=== PATIENT | male | born 1965 | race Caucasian/White ===

== ENCOUNTER 2020-07-19 12:02 | Outpatient (CLI) | payer MEDICARE, SELFPAY ==
[2020-07-19 12:12] LABS: Basophils Absolute Auto 0.07 K/mm3 (0.00-0.10); Basophils Percent Auto 0.8 % (0.0-1.0); Eosinophils Absolute Auto 0.31 K/mm3 (0.02-0.50); Eosinophils Percent Auto 3.4 % (1.0-6.0); Hematocrit 39.4 % (40.0-54.0); Hemoglobin 12.3 g/dL (14.0-18.0); Immature Granulocyte Absolute 0.03 K/mm3 (0.00-0.00); Immature Granulocyte Percent A 0.3 % (0.0-0.0); Lymphocytes Percent Auto 35.2 % (18.0-42.0); Mean Corpuscular HGB Conc 31.2 g/dL (32.0-36.0); Mean Corpuscular Hemoglobin 24.9 pg (27.0-31.0); Mean Corpuscular Volume 79.8 fL (78.0-102.0); Mean Platelet Volume 8.9 fl (8.7-11.0); Monocytes Absolute Auto 0.64 K/mm3 (0.10-0.90); Neutrophils Absolute Auto 4.9 K/mm3 (1.7-7.2); Neutrophils Percent Auto 53.3 % (50.0-70.0); Platelet Count Result 317 K/mm3 (150-420); Red Blood Count 4.94 M/mm3 (4.70-6.10); Red Cell Distribution Width 13.7 % (11.6-14.4); White Blood Count 9.1 K/mm3 (4.8-10.8)
[2020-07-19 12:47] LABS: Alanine Aminotransferase 19 U/L (16-63); Albumin Level 3.6 g/dL (3.4-5.0); Alkaline Phosphatase 104 U/L (46-116); Anion Gap 4 mmol/L (8-16); Aspartate Amino Transferase 14 U/L (15-37); Bilirubin,Total 0.3 mg/dL (0.00-1.00); Blood Urea Nitrogen 17 mg/dL (7-18); Carbon Dioxide 31 mmol/L (21-32); Chloride 105 mmol/L (98-108); Estimated Glomerular Filt Rate > 60; Glucose 93 mg/dL (70-99); Osmolality Calculated 291 mOsm/kg (285-295); Potassium 3.9 mmol/L (3.5-5.1); Sodium 140 mmol/L (136-145)
[2020-07-19 19:29] LABS: Ferritin 13 ng/mL (26-388); Iron 35 ug/dL (65-175); Percent Iron Saturation 10 % (12-57)
[2020-07-20 16:59] LABS: CRP < 0.5 mg/dL (0.0-0.9)
== END 2020-07-19 12:03 | disposition home or self-care (01) ==
LOC: CHSLAB 12:03
PROVIDERS: PCP Family Medicine; Visit Provider Family Medicine
DX: I10 Essential (primary) hypertension (principal); D64.9 Anemia, unspecified
CPT/HCPCS: 36415; 80053; 82728; 83540; 83550; 85025; 86140

== ENCOUNTER 2020-07-21 09:41 | Outpatient (CLI) | payer MEDICARE, SELFPAY ==
[2020-07-24 09:19] LABS: SARS-CoV-2 RNA PCR Negative
== END 2020-07-21 09:42 | disposition home or self-care (01) ==
LOC: CHSLAB 09:43
PROVIDERS: PCP Family Medicine; Visit Provider Family Medicine
DX: R53.83 Other fatigue (principal); Z20.828 Contact with and (suspected) exposure to other viral communicable diseases
CPT/HCPCS: 87635; C9803; U0003

== ENCOUNTER 2020-10-18 11:28 | Outpatient (CLI) | payer MEDICARE, SELFPAY ==
[2020-10-18 11:58] LABS: Influenza Control Valid (Valid); SARS-CoV-2 Ag Positive (Negative)
== END 2020-10-18 11:29 | disposition home or self-care (01) ==
LOC: CHSLAB 11:30
PROVIDERS: PCP Family Medicine; Visit Provider Family Medicine
DX: U07.1 COVID-19 (principal); J00 Acute nasopharyngitis [common cold]
CPT/HCPCS: 87426; 87804

== ENCOUNTER 2020-12-02 14:42 | Outpatient (CLI) | payer MEDICARE, SELFPAY ==
[2020-12-02 14:56] LABS: Basophils Absolute Auto 0.06 K/mm3 (0.00-0.10); Basophils Percent Auto 0.7 % (0.0-1.0); Eosinophils Percent Auto 3.3 % (1.0-6.0); Hematocrit 40.9 % (40.0-54.0); Hemoglobin 13.6 g/dL (14.0-18.0); Immature Granulocyte Absolute 0.03 K/mm3 (0.00-0.00); Immature Granulocyte Percent A 0.3 % (0.0-0.0); Lymphocytes Absolute Auto 3.25 K/mm3 (1.10-4.50); Mean Corpuscular HGB Conc 33.3 g/dL (32.0-36.0); Mean Corpuscular Hemoglobin 28.8 pg (27.0-31.0); Mean Corpuscular Volume 86.7 fL (78.0-102.0); Mean Platelet Volume 8.8 fl (8.7-11.0); Monocytes Absolute Auto 0.55 K/mm3 (0.10-0.90); Monocytes Percent Auto 6.1 % (2.0-11.0); Neutrophils Absolute Auto 4.8 K/mm3 (1.7-7.2); Neutrophils Percent Auto 53.6 % (50.0-70.0); Platelet Count Result 309 K/mm3 (150-420); Red Blood Count 4.72 M/mm3 (4.70-6.10); Red Cell Distribution Width 13.6 % (11.6-14.4); Reticulocyte Hemoglobin Conten 35.2 pg (28.0-35.0); Reticulocyte Percent 2.31 % (0.50-1.50); Reticulocytes Absolute 0.11 M/mm3 (0.02-0.1)
[2020-12-02 15:59] LABS: Ferritin 34 ng/mL (26-388); Iron 83 ug/dL (65-175); Percent Iron Saturation 25 % (12-57)
== END 2020-12-02 14:43 | disposition home or self-care (01) ==
LOC: CHSLAB 14:44
PROVIDERS: PCP Family Medicine; Visit Provider Family Medicine
DX: D50.9 Iron deficiency anemia, unspecified (principal)
CPT/HCPCS: 36415; 82728; 83540; 83550; 85025; 85046

== ENCOUNTER 2021-10-02 08:40 | Outpatient (CLI) | payer MEDICARE, OTHER, SELFPAY ==
--- NOTE | 2021-10-02 11:00 | NEURO_ITS ---
Impression: # Complains of numbness of right hand. # Right ulnar neuropathy across the elbow. # No Carpal Tunnel Syndrome. # Needle/EMG exam not requested. Nerve Conduction Studies Anti Sensory Summary Table Stim Site NR Peak (ms) P-T Amp (?V) Site1 Site2 Delta-P (ms) Dist (cm) Jey (m/s) Right Median Anti Sensory (2-3nd Digit) Wrist 3.3 37.5 Wrist 2-3nd Digit 3.3 14.0 42 Wrist 3.3 23.9 Wrist 2-3nd Digit 3.3 14.0 42 Right Radial Anti Sensory (Base 1st Digit) Wrist 2.5 10.8 Wrist Base 1st Digit 2.5 0.0 Right Ulnar Anti Sensory (5th Digit) Wrist 2.8 41.5 Wrist 5th Digit 2.8 14.0 50 Motor Summary Table Stim Site NR Onset (ms) O-P Amp (mV) Site1 Site2 Delta-0 (ms) Dist (cm) Jey (m/s) Right Median Motor (Abd Poll Brev) Wrist 3.4 1.6 Elbow Wrist 4.8 26.0 54 Elbow 8.2 2.2 Right Ulnar Motor (Abd Dig Minimi) Wrist 2.5 8.4 A Elbow Wrist 5.7 27.0 47 A Elbow 8.2 7.4 B Elbow Wrist 3.6 20.0 56 B Elbow 6.1 7.3 F Wave Studies NR F-Lat (ms) L-R F-Lat (ms) Right Median (Mrkrs) (Abd Poll Brev) 30.63 Right Ulnar (Mrkrs) (Abd Dig Min) 29.69 MTDD
== END 2021-10-02 08:41 | disposition home or self-care (01) ==
PROVIDERS: PCP Family Medicine; Visit Provider Family Medicine
DX: G56.21 Lesion of ulnar nerve, right upper limb (principal); R20.2 Paresthesia of skin
CPT/HCPCS: 95909

== ENCOUNTER 2023-05-12 10:04 | Outpatient (CLI) | payer MEDICARE, OTHER, SELFPAY ==
--- NOTE | ~2023-05-12 | XR_ITS ---
Right Shoulder Technique: AP and scapular Y views were obtained. Clinical History: Pain Findings: No fracture or dislocation is seen. Osseous alignment is anatomic. There is moderate to adv anced AC joint degenerative change. No degenerative change of the glenohumeral joint. Soft tissues ar e unremarkable. Impression: Moderate to advanced AC joint degenerative change. Reviewed, dictated and finalized at location . Impression: Moderate to advanced AC joint degenerative change.
== END 2023-05-12 10:05 | disposition home or self-care (01) ==
LOC: CHSIMG 10:07
PROVIDERS: PCP Family Medicine; Visit Provider Family Medicine
DX: M25.511 Pain in right shoulder (principal); M19.011 Primary osteoarthritis, right shoulder
CPT/HCPCS: 73030

== ENCOUNTER 2024-09-03 13:26 | Outpatient (CLI) | payer MEDICARE, OTHER, SELFPAY ==
--- NOTE | ~2024-09-03 | XR_ITS ---
3 VIEWS LUMBAR SPINE Ordering provider: Jalen Aguirre MD History: . Low back pain, radiates down Lt. leg . Comparison: None. FINDINGS: VERTEBRAL BODIES: No visible fracture or subluxation. Degenerative changes of the spine. Severe bending of the coccyx. DISK SPACES: Normal. Multilevel facet joint disease. SOFT TISSUES: Aortic calcifications. IMPRESSION: No acute osseous abnormality lumbar spine. Reviewed, dictated and finalized at location A.
== END 2024-09-03 13:27 | disposition home or self-care (01) ==
PROVIDERS: PCP Family Medicine; Visit Provider Family Medicine
DX: M54.17 Radiculopathy, lumbosacral region (principal)
CPT/HCPCS: 72100

== ENCOUNTER 2025-03-17 11:47 | Outpatient (CLI) | payer MEDICARE, OTHER, SELFPAY ==
--- NOTE | ~2025-03-17 | XR_ITS ---
Right wrist Technique: PA, oblique, lateral, and ulnar deviation views were obtained. Clinical History: Pain Findings: No acute fracture or dislocation is seen. Osseous alignment is anatomic. Joint spaces are p reserved. Soft tissues are unremarkable. Impression: Unremarkable right wrist radiographs. Reviewed, dictated and finalized at location . Impression: Unremarkable right wrist radiographs.
--- OUTSIDE RECORDS SUMMARY | 2025-03-17 11:54 | XMS_ITS | Clinical Summary ---
Author Organization [facility] Address [facility] [place] [address] Care Team Providers Care Shiftman Name Role Phone Jalen Aguirre MD Primary Care Provider [phone] Allergies No known active allergies Medications citalopram (CELEXA) 20 MG tablet 08/15/2022 Active cyanocobalamin (B-12) 1000 MCG/ML injection 08/15/2022 Ac tive lisinopril (PRINIVIL) 10 MG tablet Take 10 mg by mouth daily. Active Active Problems No known active problems Social History Tobacco Use Types Packs/Day Years Used Date Smoking Tobacco: Never Smokeless Tobacco: Never Tobacco Cessation:Counseling Given: No Sex and Gender Information Value Date Recorded Sex Assigned at Not on file Legal Sex Male 10:01 PM CDT Gender Identity Not on file Sexual Orientation Not on file Last Filed Vital Signs Vital Sign Reading Time Taken Comments Blood Pressure 132/88 09/07/2022 11:40 AM CDT Pulse 70 09/07/2022 11:40 AM CDT Temperature 36.9 C (98.5 F) 09/07/2022 11:40 AM CDT Respiratory Rate 18 09/07/2022 11:40 AM CDT Oxygen Saturation 98% 09/07/2022 11:40 AM CDT Inhaled Oxygen Concentration - - Weight 103 kg (227 lb) 09/07/2022 11:40 AM CDT Height 172.7 cm (5' 8 ) 09/07/2022 11:40 AM CDT Body Mass Index 34.52 09/07/2022 11:40 AM CDT Plan of Treatment Health Maintenance Due Date Last Done Comments Colorectal Cancer Screening Colonoscopy (10 Years) 1963 Annual Physical 1966 Hepatitis C 1981 Pneumococcal Vaccine: 50+ Years (1 of 1 - PCV) 2013 Zoster Vaccines (1 of 2) 2013 DTaP, Tdap and Td Vaccines (2 - Td or Tdap) 04/23/2021 04/23/2011 COVID-19 Vaccine ( season) 2024 08/06/2022, 08/14/2021, 01/03/2021, Additional history exists RSV Immunization or 60+ Years (1 - 1-dose 75+ series) 2038 Meningococcal B Vaccine Aged Out No l onger eligible based on patient's age to complete this topic Meningococcal Vaccine Aged Out No radha marjorie eligible based on patient's age to complete this topic RSV Immunizations Under 20 Months Aged Out No longer eligible based on patient's age to complete this topic Insurance MEDICARE [facility] Care Teams Shiftman Relationship Specialty Start Date End Date Jalen Aguirre MD [address] [place] [address] PCP - General FAMILY PRACTICE 09/07/22
--- OUTSIDE RECORDS SUMMARY | 2025-03-17 11:54 | XMS_ITS | Continuity of Care Document ---
Author Name [facility] Organization [facility] Care Team Providers Care Marine Fuel Dock Attendant Name Role Phone [facility] Unavailable Unavailable Encounters Combined list of: 1) Encounters from Department of Veterans Affairs facilities going backup to the last 18 months, not all VA inpatient encounters are included; 2) Encounters from the Department of Defense facilities going backup to 280 months. Location Location Details Encounter Type Encounter Number Reason For Visit Attending Provider ADM Date DC Date Status Disposition Source [facility] Outpatient Encounter [id number] [facility]
--- OUTSIDE RECORDS SUMMARY | 2025-03-17 11:54 | XMS_ITS | Data Portability ---
Author Organization [facility] [employer] [facility] Address [address] [facility] [place] [address] Assessment No assessment recorded. Plan of Treatment Reminders Order Date Submit Date Provider Last Modified By Organization Details Last Modified Time Details Appointments None recorded. Lab rapid flu (A+B) 2023 jose [facility], [facility] [place], [address], 10:42:57 Referral None recorded. Procedures None recorded. Surgeries None recorded. Imaging None recorded. Medication Orders benzonatate 200 mg capsule 2023 [id number] Mya [place], [facility] [place], [address], 4 10:42:57 Medrol (Jorge) 4 mg tablets in a dose pack 2023 [id number] Mya Diane, [facility] [place], [address], 4 10:42:57 Tamiflu 75 mg capsule 2023 [id number] Mya [place], [facility] [place], [address], 4 10:42:57 Patient TargetsNo targets recorded. Patient Instructions Encounter Date Encounter Id Patient Instructions Last Modified By Organization Details Last Modified Time 11/17/2023 [id number] cough: care instructions jose Not available 11/17/2023 10:42:54 Discharge Instructions jose Not available 11/17/2023 10:42:54 influenza (flu): care instructions jose Not available 11/17/2023 10:42:54 Reason for Referral None Reported. Results Created Date Observation Date Name Description Value Unit Range Abnormal Flag Note LastModifiedBy Organization Detail LastModifiedTime 11/17/19 24 11/17/2023 rapid flu (A+B) Flu A positi ve Not Available [address], [address], 11/17/2023 10:42:03 11/17/19 24 11/17/2023 rapid flu (A+B) Flu B negati ve Not Available [address], [address], 11/17/2023 10:42:03 Result Notes None recorded. Problems Name Problem SNOMED Code Status Onset Date Resolution Date Notes Provider Name and Address Organization Details Recorded Time Cough 90615545 Active 024 [place] [address], [place], [address], [facility], [facility] 10:31:07 Generalized aches and pains 99414908 Active 024 [place] [address], [place], [address], [facility], [facility] 10:31:15 Problem Notes None recorded. Procedures Surgical History Date Name Laterality Status Provider Name and Address Organization Details Recorded Time Appendectomy completed CRUZITO Hung, SARAH [address], [place], [address], [facility], [facility] 11/17/2023 10:31:32 Knee Surgery completed CRUZITO Hung, STEAM BOX OPERATOR [address], [place], [address], [facility], [facility] 11/17/2023 10:31:38 Imaging Results None recorded. Procedure Notes None recorded. Medical Equipment None Reported. Allergies No known drug allergies Medications Name Sig Start Date Stop Date Status Note LastModified by Organization Details LastModified Time azithromycin 250 mg tablet 11/17 completed Not Available Not Available Not Available benzonatate 200 mg capsule Take 1 capsule 3 times a day by oral route for 10 days. active Not Available Not Available No t Available hydrocodone 5 mg-acetamino phen 325 mg tablet active Not Available Not Available Not Available citalopram 20 mg tablet active Not Available Not Available Not Available cephalexin 500 mg capsule 11/17 completed Not Available Not Available Not Available cyanocobalam in (vit B-12) 1,000 mcg/mL injection solution active Not Available Not Available Not Available oseltamivir 75 mg capsule Take 1 capsule twice a day by oral route for 5 days. active Not Available Not Available No t Available methylpredni solone 4 mg tablets in a dose pack Take 1 dose pk by oral route. active Not Available Not Available No t Available losartan 100 mg-hydrochlo rothiazide 12.5 mg tablet active Not Available Not Available Not Available Vitals Date Recorded Heart rate Respiratory rate Oxygen saturation Oxygen saturation in Arterial blood by Pulse oximetry Body temperature Body height Body weight Systolic blood pressure Diastolic blood pressure Provider Name and Address Organization Details Last Updated DateTime 4 82 /min 18 /min 96 % 96 % 100 [degF] 172.72 cm 24888.3 2 g 147 mm[Hg] 96 mm[Hg] RCUZITO BACA, SARAH [address], [place], [address], [facility] 4 10:30:33 Social History Question Answer Notes LastModified by Organizat ion Details LastModified Time Tobacco Smoking Status Never Smoker CRUZITO BACA, SARAH [address], [place], [address], [facility], [facility] 11/17/2023 10:31:23 In The 14 Days Before Symptom Onset, Have You Had Close Contact With A Laboratory-confirm ed COVID-19 While That Case Was Ill? No [email or web address] Information n ot available 11/17/2023 In The 14 Days Before Symptom Onset, Have You Had Close Contact With A Person Who Is Under Investigation For COVID-19 While That Person Was Ill? No Information not available 11/17/2023 Have You Been To An Area Known To Be High Risk For COVID-19? No [email or web address] Information not available 11/17/2023 Alcohol Use Occasional [email or web address] Information n ot available 11/17/2023 What Was The Date Of Your Most Recent Tobacco Screening? 11/17/2023 [email or web address] Information not available 11/17/2023 Are You Passively Exposed To Smoke? No Information no t available 11/17/2023 Do You Or Have You Ever Used Any Other Forms Of Tobacco Or Nicotine? No Information not available 11/17/2023 Sex: Unknown Functional Status None recorded. Mental Status None recorded. Family History Nothing Reported. Medical History Condition Response Anxiety/Depression Y Hypertension Y Past Encounters Encounter ID Performer Location Encounter Start Date Encounter Closed Date Diagnosis/Indication Diagnosis SNOMED-CT Code Diagnosis ICD10 Code Diagnosis Note [id number] Katie Prieto NP [address] [address] 11/17/2023 10:02:32 11/17/2023 11:06:38 Influenza 1055861 J11.1 Cough 13469438 R05.9 Health Concerns Section Related Observation LastModified by Organization Detai ls LastModified Time None Recorded Concern Status LastModified by Organization Details LastModified Time None Recorded Advance Directives Directive None Recorded Payers Insurance Date Sequence Insurance Name Policy Number Policy Ribera Covered Member ID Ribera Member ID Guarantor Name 01/21/2024 1 [place] Henrique Lipscomb [id number] Henrique Lipscomb 01/21/2024 2 [employer] (O) [id number] Henrique Lipscomb [id number] Henrique Lipscomb Notes Date Note Type Note Provider Name and Address Organization Details Recorded Time 11/17/2023 text/html InfluenzaReporte d bypatient.Location:hea d; chest; throat Quality:hacking cough;productive cough;congested Severity:moderate Onset/Duration:3 day(s) ago Timing:episodic; constant Context:no foreign travel;sick contact Associated Symptoms:fatigue;sweat [place] [address], [place], [address], [facility], [facility] 11/17/2023 10:43:33
--- OUTSIDE RECORDS SUMMARY | 2025-03-17 11:54 | XMS_ITS | Encounter Summary ---
Author Organization [facility] Address [address] [place] [address] Care Team Providers Care Event Marketing Specialist Name Role Phone Jalen Aguirre MD Primary Care Provider [phone] Encounter Details Date Type Department Care Team (Late st Contact Info) Description 04/17/2019 Abstract [facility] CONVERSION [address] [place] [address] , Generic Conversion, Social History Tobacco Use Types Packs/Day Years Used Date Smoking Tobacco: Never Assessed Sex and Gender Information Value Date Recorded Sex Assigned at Not on file Legal Sex Male 10:01 PM CDT Gender Identity Not on file Sexual Orientation Not on file documented as of this encounter Plan of Treatment Not on file documented as of this encounter Visit Diagnoses Not on filedocumented in this encounter Care Teams Event Marketing Specialist Relationship Specialty Start Date End Date Jalen Aguirre MD [address] [place] [address] PCP - General FAMILY PRACTICE 09/07/22 documented as of this encounter
== END 2025-03-17 11:48 | disposition home or self-care (01) ==
LOC: CHSIMG 11:50
PROVIDERS: PCP Family Medicine; Visit Provider Family Medicine
DX: M25.531 Pain in right wrist (principal)
CPT/HCPCS: 73110

== ENCOUNTER 2025-10-12 10:15 | Outpatient (CLI) | payer MEDICARE, OTHER, SELFPAY ==
--- NOTE | ~2025-10-12 | XR_ITS ---
EXAMINATION: XR humerus LT, 10/12/2025 10:20 MANAGER ESTATE HISTORY: LEFT SHOULDER PAIN, PAIN IN LEFT ARM / MIN OF TWO VIEWS COMPARISON: No comparisons available. Findings: No acute fracture or malalignment. No significant degenerative changes. There is metallic radiopaque foreign body within the soft tissues adjacent to the distal humerus along the medial aspect. Impression: No acute fracture or malalignment. Reviewed, dictated and finalized at location P. GER ESTATE Impression: No acute fracture or malalignment.
--- NOTE | ~2025-10-12 | XR_ITS ---
EXAMINATION: XR shoulder LT min 2V, 10/12/2025 10:20 AMERICAN HISTORY TEACHER HISTORY: LEFT SHOULDER PAIN COMPARISON: No comparisons available. Findings: No acute fracture or malalignment. Moderate to severe degenerative changes Soft tissues unremarkable. Impression: No acute fracture or malalignment. Reviewed, dictated and finalized at location P. ERICAN HISTORY TEACHER Impression: No acute fracture or malalignment.
--- OUTSIDE RECORDS SUMMARY | 2025-10-12 11:34 | XMS_ITS | Encounter Summary ---
Author Organization [facility] Address [address] [place] [address] Care Team Providers Care Show Host Or Hostess Name Role Phone Jalen Aguirre MD Primary Care Provider [phone] Encounter Details Date Type Department Care Team (Late st Contact Info) Description 04/17/2019 Abstract [facility] CONVERSION [address] [place] [address] , Generic Conversion, Social History Tobacco Use [...] on filedocumented in this encounter Care Teams Show Host Or Hostess Relationship Specialty Start Date End Date Jalen Aguirre MD [address] [place] [address] PCP - General FAMILY PRACTICE 09/07/22 documented as of this encounter
--- OUTSIDE RECORDS SUMMARY | 2025-10-12 11:34 | XMS_ITS | Data Portability ---
[facility] Organization [facility] Address [address] [facility] [address] [place] [address] Assessment No assessment recorded. Plan of Treatment Reminders Order Date Submit Date Provider Last Modified By Organization Details Last Modified Time Details Appointments None recorded. Lab rapid flu (A+B) 2023 jose [facility], [address] [place], [address], 10:42:57 Referral None recorded. Procedures None recorded. Surgeries None recorded. Imaging None recorded. Medication Orders benzonatate 200 mg capsule [facility]23 [id number] Mya [place], [address] [place] [address], [address], 4 10:42:57 Medrol (Jorge) 4 mg tablets in a dose pack 2023 024 [id number] Mya Diane, [address] [place] [address], [address], 4 10:42:57 Tamiflu 75 mg capsule 2023 [place] [id number] Mya [place], [address] [place] [address], [address], 4 10:42:57 Patient TargetsNo targets recorded. Patient Instructions Encounter Date Encounter Id Patient Instructions Last Modified By Organization Details Last Modified Time 11/17/2023 [id number] cough: care instructions jose Not available 11/17/2023 10:42:54 Discharge Instructions jose Not available 11/17/2023 10:42:54 influenza (flu): care instructions jose Not available 11/17/2023 10:42:54 Reason for Referral None Reported. Results Created Date Observation Date Name Description Value Unit Range Abnormal Flag Note LastModifiedBy Organization Detail LastModifiedTime 11/17/19 24 11/17/2023 rapid flu (A+B) Flu A positi ve Not Available [address], [address], 11/17/2023 10:42:03 11/17/19 24 11/17/2023 rapid flu (A+B) Flu B negati ve Not Available [facility] [address] [place] [address], [address], 11/17/2023 10:42:03 Result Notes None recorded. Problems Name Problem SNOMED Code Status Onset Date Resolution Date Notes Provider Name and Address Organization Details Recorded Time Cough 85550985 Active 024 CRUZITO BACA, BIOINFORMATICS TEAM MEMBER [address], [place], [address], [facility], [facility] 10:31:07 Generalized aches and pains 01728168 Active 024 [place] [address], [place], [address], [facility], [facility] 10:31:15 Problem Notes None recorded. Procedures Surgical History Date Name Laterality Status Provider Name and Address Organization Details Recorded Time Appendectomy completed CRUZITO NOLVIA Hung, BIOINFORMATICS TEAM MEMBER [address], [place], [address], [facility], [facility] 11/17/2023 10:31:32 Knee Surgery completed CRUZITO Hung, BIOINFORMATICS TEAM MEMBER [address], [place], [address], [facility], [facility] 11/17/2023 10:31:38 Imaging Results None recorded. [...] Recorded Heart rate Respiratory rate Oxygen saturation Body temperature Body height Body weight Systolic And Diastolic Provider Name and Address Organization Details Last Updated DateTime 4 82 /min 18 /min 96 % 100 [degF] 172.72 cm 29993.3 2 g 147/96 mm[Hg] [place] [address], [place], [address], [facility] 4 10:30:33 Social History Question Answer Notes LastModified by Organizat ion Details LastModified Time Tobacco Smoking Status [place] [address], [place], [address], [facility], [facility] 11/17/2023 10:31:23 In The 14 Days Before Symptom Onset, Have You Had Close Contact With A Laboratory-confirm ed COVID-19 While That Case Was Ill? No [email or web address] Information n ot available 11/17/2023 In The 14 Days Before Symptom Onset, Have You Had Close Contact With A Person Who Is Under Investigation For COVID-19 While That Person Was Ill? No Information not available 11/17/2023 Have You Been To An Area Known To Be High Risk For COVID-19? No [email or web address] Information not available 11/17/2023 Alcohol Use Occasional Information n ot available 11/17/2023 What Was The Date Of Your Most Recent Tobacco Screening? 11/17/2023 [email or web address] Information not available 11/17/2023 Are You Passively Exposed To Smoke? No Information no t available 11/17/2023 Sex: Unknown Functional Status Question Answer Note LastModified by Organization D etails LastModified Time Do you or have you ever used any other forms of tobacco or nicotine? No Information not available 11/17/2023 Mental Status None recorded. Family History Nothing Reported. Medical History Condition Response Anxiety/Depression Y Hypertension Y Past Encounters Encounter ID Performer Location Encounter Start Date Encounter Closed Date Diagnosis/Indication Diagnosis SNOMED-CT Code Diagnosis ICD10 Code Diagnosis IMO Codes Diagnosis Note [id number] Katie Prieto NP [address] [address] 11/17/2023 10:02:32 11/17/2023 11:06:38 Influenza 4998657 J11.1 Cough 41594478 R05.9 Health Concerns Section Related Observation LastModified by Organization Detai ls LastModified Time None Recorded Concern Status LastModified by Organization Details LastModified Time None Recorded Advance Directives Directive None Recorded Payers Insurance Date Sequence Insurance Name Policy Number Policy Ribera Covered Member ID Ribera Member ID Guarantor Name 01/21/2024 1 [place] Henrique Lipscomb [id number] Henrique Lipscomb 01/21/2024 2 [employer] (O) [id number] Henrique Lipscomb [id number] Henrique Lipscomb Notes Date Note Type Note Provider Name and Address Organization Details Recorded Time 11/17/2023 text/html InfluenzaReporte d by PatientUpper Respiratory SymptomsFor quality, patient reportshacking cough,productive cough, andcongested. For context, patient reportssick contactbut reportsno foreign travel. For associated symptoms, patient reportsfatigue,sweats, andfever. For location, patient reportshead,chest, andthroat. For severity, patient reportsmoderate. For onset/duration, patient reports3 day(s) ago. For timing, patient [place]sep[place] [address], [place], [address], [facility], [facility] 11/17/2023 10:43:33
--- OUTSIDE RECORDS SUMMARY | 2025-10-12 11:34 | XMS_ITS | Clinical Summary ---
Author Organization [facility] Address [facility] [place] [address] Care Team Providers Care Primary Health Organisation Manager Name Role Phone Jalen Aguirre MD Primary Care Provider [phone] Allergies No known active allergies Medications citalopram [...] 11:40 AM CDT Height 172.7 cm (5' 8) 09/07/2022 11:40 AM CDT Body Mass Index [...] or Tdap) 04/23/2021 04/23/2011 COVID-19 Vaccine ( - season) 2025 08/06/2022, 08/14/2021, 01/03/2021, Additional history exists Influenza Adult (#1) 2025 09/18/2021, 07/19/2020, 08/05/2019, Additional history exists RSV Immunization or 60+ Years (1 - 1-dose 75+ series) 2038 Hepatitis A Vaccines Aged Out No long er eligible based on patient's age to complete this topic Meningococcal B Vaccine Aged Out No l onger eligible based on patient's age to complete this topic Meningococcal Vaccine Aged Out No radha marjorie eligible based on patient's age to complete this topic RSV Immunizations Under 20 Months Aged Out No longer eligible based on patient's age to complete this topic Insurance MEDICARE [facility] Care Teams Primary Health Organisation Manager Relationship Specialty Start Date End Date Jalen Aguirre MD [address] [place], [place] [id number] PCP - General FAMILY PRACTICE 09/07/22
== END 2025-10-12 10:16 | disposition home or self-care (01) ==
PROVIDERS: PCP Family Medicine; Visit Provider Family Medicine
DX: M25.512 Pain in left shoulder (principal); M79.602 Pain in left arm
CPT/HCPCS: 73030; 73060